=== PATIENT | female | born 1950 | race Caucasian/White ===

== ENCOUNTER 2024-11-03 07:30 | Inpatient (IN) ==
[2024-10-15 12:12] LABS: Basophils # (Auto) 0.07 K/mcL (0.00-0.30); Basophils % (Auto) 1.2 % (0.0-2.0); Eosinophils # (Auto) 0.22 K/mcL (0.00-0.70); Eosinophils % (Auto) 3.6 % (0.0-7.0); Hematocrit 37.2 % (34.1-44.9); Hemoglobin 12.6 g/dL (11.2-15.7); Lymphocytes # (Auto) 1.27 K/mcL (1.50-4.80); Mean Cell Volume 94.2 fL (80.0-100.0); Mean Corpuscular HGB Conc 33.9 g/dL (31.0-36.0); Mean Platelet Volume 11.5 fL (8.8-12.5); Monocytes # (Auto) 0.71 K/mcL (0.10-0.90); Monocytes % (Auto) 11.7 % (1.0-12.0); Neutrophils % (Auto) 62.2 % (38.0-78.0); Platelet Count 305 K/mcL (140-440); RBC 3.95 M/mcL (3.59-5.38); Red Cell Distribution Width 11.8 % (11.5-14.5); WBC 6.1 K/mcL (4.5-11.0)
[2024-10-15 12:30] LABS: ALT/SGPT 15 U/L (<40); AST/SGOT 20 U/L (<32); Albumin 4.2 gm/dL (3.2-5.2); Albumin/Globulin Ratio 1.6 (1.0-2.3); Alkaline Phosphatase 78 U/L (39-117); Bilirubin,Total 0.5 mg/dL (0.1-1.0); Blood Urea Nitrogen 8 mg/dL (8-23); Calcium 9.8 mg/dL (8.6-10.4); Carbon Dioxide 27 mmol/L (22-30); Chloride 92 mmol/L (96-108); Globulin 2.7 gm/dL (2.2-3.7); Glomerular Filtration Rate 56; Glucose 108 mg/dL (70-105); Sodium 132 mmol/L (133-145)
[2024-10-15 12:37] LABS: INR 0.9 (0.9-1.1); Prothrombin Time 12.9 sec (11.9-14.5)
[2024-10-15 14:12] LABS: Appearance,Urine CLOUDY (Clear); Bacteria,Urine MOD /hpf (0); Bilirubin,Urine Negative (Negative); Color,Urine YELLOW; Glucose,Urine (UA) Negative (Negative); Ketones,Urine Negative (Negative); Leukocyte Esterase,Urine 250 /uL (Negative); Nitrate,Urine Negative (Negative); Protein,Urine Negative (Negative); Specific Gravity,Urine 1.008 (1.000-1.035); Urine Blood Negative (Negative); Urine Budding Yeast FEW /hpf; Urine RBC 5 /hpf (0-3); Urine Squamous Epithelial Cell 12 /hpf (0-4); Urine WBC 30 /hpf (0-4); Urobilinogen,Urine Negative
[2024-10-15 14:49] LABS: Estimated Average Glucose(eAG) 114 mg/dL; Hemoglobin A1C 5.6 % Hgb (4.0-6.0)
[2024-11-25 11:05] LABS: Basophils # (Auto) 0.02 K/mcL (0.00-0.30); Basophils % (Auto) 0.3 % (0.0-2.0); Eosinophils # (Auto) 0.21 K/mcL (0.00-0.70); Eosinophils % (Auto) 3.3 % (0.0-7.0); Hematocrit 38.7 % (34.1-44.9); Hemoglobin 12.4 g/dL (11.2-15.7); Lymphocytes # (Auto) 1.38 K/mcL (1.50-4.80); Lymphocytes % (Auto) 21.7 % (15.5-49.0); Mean Cell Volume 97.7 fL (80.0-100.0); Mean Platelet Volume 10.7 fL (8.8-12.5); Monocytes # (Auto) 0.62 K/mcL (0.10-0.90); Monocytes % (Auto) 9.7 % (1.0-12.0); Neutrophils % (Auto) 64.5 % (38.0-78.0); Platelet Count 285 K/mcL (140-440); RBC 3.96 M/mcL (3.59-5.38); Red Cell Distribution Width 14.4 % (11.5-14.5); WBC 6.4 K/mcL (4.5-11.0)
[2024-11-25 11:18] LABS: Prothrombin Time 13.5 sec (11.9-14.5)
[2024-11-25 11:33] LABS: Appearance,Urine Clear (Clear); Bacteria,Urine Mod /hpf (0); Bilirubin,Urine Negative (Negative); Color,Urine Yellow; Glucose,Urine (UA) Negative (Negative); Ketones,Urine Negative (Negative); Leukocyte Esterase,Urine Large /uL (Negative); Nitrate,Urine Negative (Negative); PH,Urine 7.5 (5.0-9.0); Protein,Urine Negative (Negative); Specific Gravity,Urine 1.015 (1.000-1.035); Urine Blood Small ery/mcL (Negative); Urine RBC 8 /hpf (0-3); Urine Squamous Epithelial Cell 5 /hpf (0-4); Urine Transitional Epi Cells 2 /hpf (0-2); Urine WBC 21 /hpf (0-4); Urobilinogen,Urine Normal
[2024-11-25 11:39] LABS: ALT/SGPT 7 U/L (<40); AST/SGOT 19 U/L (<32); Albumin 4.1 gm/dL (3.2-5.2); Albumin/Globulin Ratio 1.4 (1.0-2.3); Alkaline Phosphatase 114 U/L (39-117); Bilirubin,Total 0.7 mg/dL (0.1-1.0); Blood Urea Nitrogen 10 mg/dL (8-23); Calcium 9.4 mg/dL (8.6-10.4); Carbon Dioxide 26 mmol/L (22-30); Chloride 95 mmol/L (96-108); Globulin 2.9 gm/dL (2.2-3.7); Glomerular Filtration Rate 64; Glucose 107 mg/dL (70-105); Potassium 3.5 mmol/L (3.3-5.1); Sodium 134 mmol/L (133-145)
[2024-11-25 14:19] LABS: Estimated Average Glucose(eAG) 108 mg/dL; Hemoglobin A1C 5.4 % Hgb (4.0-6.0)
[2024-12-01] MEDS ORDERED: IPRATROPIUM/ALBUTEROL 3 ML AMPUL.NEB NEB PRN ×2 (09:00→15:58)
[2024-12-01] MEDS ORDERED: SCOPOLAMINE 1 PATCH PATCH TOPICAL PRN (09:00)
[2024-12-01] MEDS ORDERED: PROPOFOL 200 MG/20 ML VIAL IV ONE ×2 (12:18→13:27)
[2024-12-01] MEDS ORDERED: fentaNYL 100 MCG/2 ML VIAL ONE (12:18)
[2024-12-01] MEDS ORDERED: SUGAMMADEX SODIUM 200 MG/2 ML VIAL IV ONE (12:18)
[2024-12-01] MEDS ORDERED: MAGNESIUM SULFATE 2 GM/50 ML BAG IV ONE (12:19)
[2024-12-01] MEDS ORDERED: ROCURONIUM 10 MG/ML ML IV ONE (12:19)
[2024-12-01] MEDS ORDERED: ONDANSETRON 4 MG/2 ML VIAL ONE ×2 (12:19→14:39)
[2024-12-01] MEDS ORDERED: GLYCOPYRROLATE 0.2 MG/ML VIAL IV ONE (12:19)
[2024-12-01] MEDS ORDERED: TRANEXAMIC ACID 1,000 MG/10 ML VIAL ONE (12:19)
[2024-12-01] MEDS ORDERED: LIDOCAINE 2% PF 5 ML VIAL ONE (12:19)
[2024-12-01] MEDS ORDERED: DEXAMETHASONE 10 MG/ML VIAL ONE (12:19)
[2024-12-01] MEDS ORDERED: HYDROmorphone 0.5 MG/0.5 ML SYRINGE ONE (12:20)
[2024-12-01] MEDS ORDERED: KETAMINE 50 MG/ML Syringe IV ONE ×2 (12:20→15:13)
[2024-12-01] MEDS: ceFAZolin 2 GM in DEXTROSE 5% IN WATER 50 ML IV SCH (13:00)
[2024-12-01] MEDS ORDERED: DEXMEDETOMIDINE HCL 200 MCG/2 ML VIAL ONE (13:30)
[2024-12-01] MEDS: GELATIN SPONGE,ABSORBABLE 1 EACH SPONGE TOPICAL ONE (13:30)
[2024-12-01] MEDS: THROMBIN (BOVINE) 5,000 UNIT VIAL TOPICAL ONE (13:30)
[2024-12-01] MEDS ORDERED: 0.9 % SODIUM CHLORIDE 100 ML IV ONE (13:31)
[2024-12-01] MEDS ORDERED: PHENYLephrine 1 MG/10 ML SYRINGE (ANEST) ONE ×2 (14:08→14:32)
[2024-12-01] MEDS ORDERED: FAMOTIDINE/PF 20 MG/2 ML VIAL IV ONE (14:39)
[2024-12-01] MEDS ORDERED: ePHEDrine 50 MG/ML AMPUL IV ONE (15:25)
[2024-12-01] MEDS ORDERED: ONDANSETRON 4 MG/2 ML VIAL IV PRN ×2 (15:58→16:11)
[2024-12-01] MEDS: BUPIVACAINE 0.25% 50 ML VIAL IJ ONE (16:10)
[2024-12-01] MEDS ORDERED: BENZOCAINE/MENTHOL 1 LOZENGE PO PRN (16:11)
[2024-12-01] MEDS ORDERED: morphine 4 MG/ML VIAL IV PRN (16:11)
[2024-12-01] MEDS ORDERED: ONDANSETRON 4 MG ODT TABLET SL PRN (16:11)
[2024-12-01] MEDS ORDERED: PROMETHAZINE 25 MG/ML VIAL IV PRN (16:11)
[2024-12-01] MEDS ORDERED: traMADol 50 MG TABLET PO PRN (16:14)
[2024-12-01] MEDS ORDERED: CYCLOBENZAPRINE 10 MG TABLET PO PRN (16:20)
[2024-12-01] MEDS ORDERED: ACETAMINOPHEN 500 MG TABLET PO PRN (16:20)
[2024-12-01] MEDS: HYDROmorphone 0.5 MG/0.5 ML SYRINGE IV PRN (16:46)
[2024-12-01] MEDS: METHOCARBAMOL 1,000 MG/10 ML VIAL IV PRN (17:00)
[2024-12-01] MEDS: ACETAMINOPHEN 1,000 MG/100 ML BAG IV ONE (17:10)
[2024-12-01] MEDS: fentaNYL 100 MCG/2 ML VIAL IV PRN (17:22)
[2024-12-01] MEDS: KETOROLAC 15 MG/ML VIAL IV ONE (17:38)
[2024-12-01] MEDS: HYDROCODONE/APAP 7.5/325MG TABLET PO PRN (18:31)
[2024-12-01] MEDS: POTASSIUM CHLORIDE 10 MEQ TABLET PO SCH (19:42)
[2024-12-01] MEDS: METHOCARBAMOL 750 MG TABLET PO PRN (19:42)
[2024-12-01] MEDS: KETOROLAC 15 MG/ML VIAL ONE (20:31)
[2024-12-01] MEDS: DEXTROSE 5%-1/2NS 1,000 ML IV SCH (20:31)
[2024-12-01] MEDS: ceFAZolin 1 GM VIAL IV SCH (21:32)
[2024-12-01] MEDS: SENNOSIDES 1 TABLET PO SCH (21:32)
[2024-12-01] MEDS: 0.9 % SODIUM CHLORIDE 10 ML SYRINGE IV SCH (21:33)
[2024-12-01] MEDS: SULFAMETHOXAZOLE/TRIMETHOPRIM 1 TABLET PO SCH (21:33)
[2024-12-01] MEDS: DOCUSATE SODIUM 100 MG CAPSULE PO SCH (21:33)
[2024-12-01] MEDS: GABAPENTIN 300 MG CAPSULE PO SCH (21:33)
[2024-12-01] MEDS: LACTATED RINGERS 1,000 ML IV SCH (21:57)
[2024-12-02 06:56] LABS: Hematocrit 32.8 % (34.1-44.9); Hemoglobin 10.8 g/dL (11.2-15.7)
[2024-12-02 07:07] LABS: Blood Urea Nitrogen 10 mg/dL (8-23); Calcium 9.3 mg/dL (8.6-10.4); Carbon Dioxide 21 mmol/L (22-30); Chloride 95 mmol/L (96-108); Glomerular Filtration Rate 50; Glucose 118 mg/dL (70-105); Potassium 3.9 mmol/L (3.3-5.1); Sodium 130 mmol/L (133-145)
[2024-12-02] MEDS: PANTOPRAZOLE 40 MG TABLET PO SCH (07:32)
[2024-12-02] MEDS: CITALOPRAM 20 MG TABLET PO SCH (09:12)
[2024-12-02] MEDS: HYDROCHLOROTHIAZIDE 12.5 MG CAPSULE PO SCH (09:13)
[2024-12-02] MEDS: LOSARTAN 50 MG TABLET PO SCH (09:13)
[2024-12-02] MEDS: CALCIUM CARBONATE 500 MG TAB.CHEW CHEWED SCH (09:47)
[2024-12-03 06:04] LABS: Hematocrit 35.3 % (34.1-44.9); Hemoglobin 11.7 g/dL (11.2-15.7)
== END 2024-12-03 10:40 | disposition home or self-care (01) | DRG 427 ==
LOC: MEDSUR 12-01 09:05
PROVIDERS: ADMIT Orthopaedic Surgery Orthopaedic Surgery of the Spine; ATTEND Orthopaedic Surgery Orthopaedic Surgery of the Spine